=== PATIENT | male | born 1995 | race Caucasian/White ===

== ENCOUNTER 2023-01-31 11:47 | Inpatient (IN) | payer BC ==
[~2023-01-31] VITALS: Ht 175.3 cm; Wt 90.7 kg
--- NOTE | 2023-01-31 12:53 | NUR ---
URINE SAMPLE SENT TO LAB
[2023-01-31 12:57] LABS: BASOPHILS % (AUTO) 0.4 % (0.0-2.0); EOSINOPHILS % (AUTO) 5.2 % (0.0-6.0); HEMATOCRIT 44 % (39-51); HEMOGLOBIN 14.9 g/dL (13.5-17.5); LYMPHOCYTES # (AUTO) 1.3 K/uL (0.8-4.8); LYMPHOCYTES % (AUTO) 21.9 % (20.0-44.0); MEAN CORPUSCULAR HGB CONC 34 g/dl (31.0-36.0); MEAN CORPUSCULAR VOLUME 87 fL (80-96); MONOCYTES # (AUTO) 0.7 K/uL (0.1-1.30); NEUTROPHILS # (AUTO) 3.7 K/uL (1.8-8.9); NEUTROPHILS % (AUTO) 60.5 % (43.0-81.0); PLATELET COUNT (AUTO) 232 K/uL (150-450); RED BLOOD CELL COUNT(AUTO) 5.03 MIL/uL (4.5-6.0); WHITE BLOOD COUNT (AUTO) 6.1 K/uL (4.3-11.0)
[2023-01-31 13:00] LABS: COLOR,URINE YELLOW (YELLOW); PROTEIN,URINE NEGATIVE (NEGATIVE)
[2023-01-31] MEDS ORDERED: IV NS 0.9% 1,000 ML IV ONE (13:00)
[2023-01-31 13:01] LABS: BILIRUBIN,URINE NEGATIVE (NEGATIVE); LEUKOCYTE ESTERASE ,URINE NEGATIVE (NEGATIVE); NITRITE, URINE NEGATIVE (NEGATIVE); UGLUCOSE NEGATIVE (NEGATIVE); UROBILINOGEN,URINE 0.2 EU/dL (0.2)
[2023-01-31 13:33] LABS: POTASSIUM 3.9 mmol/L (3.5-5.1)
[2023-01-31 14:35] LABS: ALBUMIN 4.1 g/dL (3.4-5.0); BILIRUBIN,DIRECT 0.1 mg/dL (0.0-0.2); BILIRUBIN,TOTAL 0.4 mg/dL (0.2-1.0); TOTAL PROTEIN, SERUM 6.9 g/dL (6.4-8.2)
[2023-01-31 14:40] LABS: RBC,URINE 0-2 /HPF (0-2); WBC,URINE NONE SEEN /HPF (0-3)
[2023-01-31 14:41] LABS: BACTERIA,URINE None seen /HPF (None Seen); SQUAMOUS EPITHELIAL CELL,UR Few /HPF (None Seen)
--- NOTE | 2023-01-31 15:07 | NUR ---
MOVE SHEET SUBMITTED.
[2023-01-31] MEDS ORDERED: ONDANSETRON HCL/PF 4 MG/2 ML VIAL IVP PRN (17:30)
[2023-01-31] MEDS ORDERED: HYDROCODONE/APAP 5/325MG TABLET PO PRN (17:30)
[2023-01-31] MEDS ORDERED: MAG HYDROX/AL HYDROX/SIMETH 30 ML UDC PO PRN (17:30)
[2023-01-31] MEDS ORDERED: ACETAMINOPHEN 325 MG TABLET PO PRN (17:30)
[2023-01-31] MEDS ORDERED: MAGNESIUM HYDROXIDE 30 ML UDC PO PRN (17:30)
[2023-01-31] MEDS ORDERED: Z GUARD REMEDY 4 OZ OINT TP PRN (17:30)
[2023-01-31] MEDS ORDERED: ZOLPIDEM TARTRATE 5 MG TABLET PO PRN (17:30)
--- NOTE | 2023-01-31 17:55 | NUR ---
GOT BED 323-2 ADMITTING INFORMED.
--- NOTE | 2023-01-31 18:10 | NUR ---
report given to marv kim. pt awaiting transfer to floor.
--- NOTE | 2023-01-31 18:58 | NUR ---
RN CLOSING NOTE PATIENT TRANSFERRED TO UNIT VIA GURNEY WITH NO SIGN OF DISTRESS, AT 1830. V/S TAKEN AND STABLE. PARTIAL SKIN ASSESSMENT DONE, PATIENT DID NOT REMOVED HIS PANTS, PER PATIENT SKIN INTACT. PATIENT WAS ORIENTED TO ROOM SET UP AND EDUCATED ON THE USE OF CALL LIGHT. BELONGING LIST CHECKED AND SIGNED. PATIENT AWAKE IN BED RESTING, A/O X 4. NO S/S OF PAIN NOTED AT THIS TIME. ON ROOM AIR, BREATHING EVEN UNLABORED, NO DISTRESS OR SHORTNESS OF BREATH NOTED. IV ACCESS LAC #20G INTACT, PATENT AND FLUSHING WELL. FALL AND SAFETY MEASURES IN PLACE, BED ALARM ON, BED IN LOW AND LOCK POSITION, CALL LIGHT AND TABLE WITHIN EASY REACH, SIDE RAILS UP X2. ALL NEEDS ATTENDED AND ANTICIPATED. WILL ENDORSE TO [employer] NURSE.
[2023-01-31] MEDS: IV 1/2NS 1000 ML 1,000 ML IV PRN (19:40)
--- NOTE | 2023-01-31 19:55 | NUR ---
MS RN OPENING NOTES RECEIVED PATIENT IN BED AWAKE, ALERT AND ORIENTED. A/O X 4. NO S/S OF PAIN NOTED AT THIS TIME. ON ROOM AIR, BREATHING EVEN UNLABORED, NO DISTRESS OR SHORTNESS OF BREATH NOTED. IV ACCESS LAC #20G INTACT, PATENT AND FLUSHING WELL. SAFETY MEASURES IN PLACE WITH BED IN LOW AND LOCK POSITION. PATIENT IS AMBULATORY. CALL LIGHT AND TABLE WITHIN EASY REACH, SIDE RAILS UP X 2. WILL CONTINUE WITH THE PLAN OF CARE.
[2023-01-31 20:00] VITALS: BP 136/83
[2023-02-01] MEDS: IV 1/2NS 1000 ML 1,000 ML IV PRN ×2 (01:09→06:17)
[2023-02-01 06:51] LABS: BASOPHILS % (AUTO) 0.2 % (0.0-2.0); EOSINOPHILS % (AUTO) 8.8 % (0.0-6.0); HEMATOCRIT 42 % (39-51); HEMOGLOBIN 14.4 g/dL (13.5-17.5); LYMPHOCYTES # (AUTO) 1.7 K/uL (0.8-4.8); LYMPHOCYTES % (AUTO) 29.7 % (20.0-44.0); MEAN CORPUSCULAR HGB CONC 34 g/dl (31.0-36.0); MEAN CORPUSCULAR VOLUME 87 fL (80-96); MONOCYTES # (AUTO) 0.7 K/uL (0.1-1.30); NEUTROPHILS # (AUTO) 2.8 K/uL (1.8-8.9); NEUTROPHILS % (AUTO) 49.3 % (43.0-81.0); PLATELET COUNT (AUTO) 218 K/uL (150-450); RED BLOOD CELL COUNT(AUTO) 4.87 MIL/uL (4.5-6.0); WHITE BLOOD COUNT (AUTO) 5.8 K/uL (4.3-11.0)
[2023-02-01 07:19] LABS: ALBUMIN 3.7 g/dL (3.4-5.0); BILIRUBIN,DIRECT 0.1 mg/dL (0.0-0.2); BILIRUBIN,TOTAL 0.4 mg/dL (0.2-1.0); CALCIUM, SERUM 8.9 mg/dL (8.5-10.1); CREATININE 0.9 mg/dL (0.6-1.3); MAGNESIUM 2.4 mg/dL (1.8-2.4); PHOSPHORUS 4.7 mg/dL (2.5-4.9); POTASSIUM 4.5 mmol/L (3.5-5.1); TOTAL PROTEIN, SERUM 6.3 g/dL (6.4-8.2)
--- NOTE | 2023-02-01 07:20 | NUR ---
RN OPENING NOTE- PATIENT IN BED AWAKE, ALERT AND ORIENTED. INTERACTIVE AND CALM, A/O X 4. NO S/S OF PAIN NOTED AT THIS TIME. SATS 99% RA, IV ACCESS LAC #20G INTACT WITH 1/2 NS RUNNING 200ML/HR. PO INTAKE GOOD, DENIES MUSCLE CRAMPS, PAIN OR NAUSEA. SAFETY MEASURES IN PLACE WITH BED IN LOW AND LOCK POSITION. PATIENT IS AMBULATORY. CALL LIGHT AND TABLE WITHIN EASY REACH, SIDE RAILS UP X 2. MONITOR ./ ASSIST
--- NOTE | 2023-02-01 07:33 | NUR ---
MS RN CLOSING NOTES PATIENT IN BED AWAKE, ALERT AND ORIENTED. A/O X 4. NO S/S OF PAIN NOTED AT THIS TIME. ON ROOM AIR, BREATHING EVEN UNLABORED, NO DISTRESS OR SHORTNESS OF BREATH NOTED. IV ACCESS LAC #20G INTACT WITH 1/2 NS RUNNING 200ML/HR. SAFETY MEASURES IN PLACE WITH BED IN LOW AND LOCK POSITION. PATIENT IS AMBULATORY. CALL LIGHT AND TABLE WITHIN EASY REACH, SIDE RAILS UP X 2. WILL ENDORSE TO THE NEXT SHIFT.
[2023-02-01 08:00] VITALS: BP 124/77
--- NOTE | 2023-02-01 11:10 | NUR ---
RN NOTE- DISCHARGE - PT DC HOME AT THIS TIME. ID WRISTBAND REMOVED, IV REMOVED, VS STABLE, SKIN INTACT, AOX4. DC INSTRUCTIONS REVIEWED AND UNDERSTOOD,. ESCORTED OFF UNIT BY STAFF
== END 2023-02-01 11:10 | disposition home or self-care (01) | DRG 558 ==
LOC: ER 11:56 → TELE 18:02 → MED 18:42
PROVIDERS: ADMIT Student in an Organized Health Care Education/Training Program; ATTEND Student in an Organized Health Care Education/Training Program
DX: M62.82 Rhabdomyolysis (principal); R74.01 Elevation of levels of liver transaminase levels; Z20.822 Contact with and (suspected) exposure to COVID-19
CPT/HCPCS: 36415; 80048-TC; 80076-TC; 81001; 82550-TC; 82553; 83735-TC; 84100-TC; 85025-TC; 87081-TC; A4223; C9803; G0378; J3490

== ENCOUNTER 2023-02-20 08:13 | Emergency (ER) | payer BC ==
[~2023-02-20] VITALS: Ht 172.7 cm; Wt 90.7 kg
[2023-02-20] MEDS ORDERED: IV NS 0.9% 1,000 ML BAG IV ONE (08:30)
--- NOTE | 2023-02-20 08:30 | NUR ---
GENERALIZED WEAKNESS SINCE THIS MORNING , HAS HISTORY OF RHABDOMYOLYSIS [id number] AGO.
--- NOTE | 2023-02-20 08:31 | NUR ---
ESTABLISHED IV LINE 20 G LEFT AC.
--- NOTE | 2023-02-20 08:31 | NUR ---
BLOOD SAMPLE OBTAINED SENT TO LAB
[2023-02-20 08:38] LABS: BASOPHILS % (AUTO) 0.3 % (0.0-2.0); EOSINOPHILS % (AUTO) 6.1 % (0.0-6.0); HEMATOCRIT 50 % (39-51); HEMOGLOBIN 16.6 g/dL (13.5-17.5); LYMPHOCYTES # (AUTO) 1.5 K/uL (0.8-4.8); LYMPHOCYTES % (AUTO) 15.7 % (20.0-44.0); MEAN CORPUSCULAR HGB CONC 34 g/dl (31.0-36.0); MEAN CORPUSCULAR VOLUME 87 fL (80-96); MONOCYTES # (AUTO) 0.5 K/uL (0.1-1.30); MONOCYTES % (AUTO) 5.4 % (2.0-12.0); NEUTROPHILS # (AUTO) 6.9 K/uL (1.8-8.9); NEUTROPHILS % (AUTO) 72.5 % (43.0-81.0); PLATELET COUNT (AUTO) 277 K/uL (150-450); RED BLOOD CELL COUNT(AUTO) 5.67 MIL/uL (4.5-6.0); WHITE BLOOD COUNT (AUTO) 9.6 K/uL (4.3-11.0)
[2023-02-20 08:59] LABS: CALCIUM, SERUM 9.4 mg/dL (8.5-10.1); CARBON DIOXIDE 26 mmol/L (21-32); CHLORIDE 105 mmol/L (98-107); CREATININE 1.3 mg/dL (0.6-1.3); GLUCOSE 126 mg/dL (74-106); SODIUM SERUM 144 mmol/L (136-145); UREA NITROGEN, BLOOD 12 mg/dL (7-18)
[2023-02-20 09:04] LABS: ALANINE AMINOTRANSFERASE 57 U/L (12-78); ALBUMIN 4.7 g/dL (3.4-5.0); ALKALINE PHOSPHATASE 60 U/L (46-116); ASPARTATE AMINOTRANSFERASE 27 U/L (15-37); BILIRUBIN,DIRECT 0.1 mg/dL (0.0-0.2); BILIRUBIN,TOTAL 0.6 mg/dL (0.2-1.0); TOTAL PROTEIN, SERUM 7.6 g/dL (6.4-8.2)
[2023-02-20 09:05] LABS: ALCOHOL, BLOOD < 3 mg/dL (0-0)
[2023-02-20 09:11] LABS: THYROID STIMULATING HORMONE 1.101 uIU/mL (0.358-3.74)
--- NOTE | 2023-02-20 09:18 | NUR ---
TAKEN TO CT VIA [facility]
--- NOTE | 2023-02-20 09:20 | NUR ---
URINE COLLECTED SENT TO LAB
--- NOTE | 2023-02-20 09:24 | NUR ---
[facility]
[2023-02-20 10:42] VITALS: BP 161/81
--- NOTE | 2023-02-20 10:42 | NUR ---
IV removed. Catheter intact and site benign. Pressure and 4x4 applied to site. No bleeding noted.
--- NOTE | 2023-02-20 10:42 | NUR ---
Patient discharged to home in stable condition. Written and verbal after care instructions given. Patient verbalizes understanding of instruction.
[2023-02-20 11:03] LABS: BILIRUBIN,URINE NEGATIVE (NEGATIVE); COLOR,URINE YELLOW (YELLOW); LEUKOCYTE ESTERASE ,URINE NEGATIVE (NEGATIVE); NITRITE, URINE NEGATIVE (NEGATIVE); PROTEIN,URINE NEGATIVE (NEGATIVE); UGLUCOSE NEGATIVE (NEGATIVE)
[2023-02-20 11:21] LABS: BACTERIA,URINE None seen /HPF (None Seen); RBC,URINE 0-2 /HPF (0-2); SQUAMOUS EPITHELIAL CELL,UR Few /HPF (None Seen); WBC,URINE 0-2 /HPF (0-3)
== END 2023-02-20 10:43 | disposition home or self-care (01) ==
LOC: ER 08:22
DX: R41.82 Altered mental status, unspecified (principal)
CPT/HCPCS: 99284; 96360; 93005; 70450; 85025; 80048; 80076; 81001; 36415; 84443; 80143; 80320; 80307; J7030; G0480